=== PATIENT | male | born 1955 | race Caucasian/White ===

== ENCOUNTER 2019-05-11 14:35 | Inpatient (IN) | payer SELFPAY, OTHER ==
[~2019-05-11 14:35] MED LIST: ISOVUE-370 76%-LOCM 1 ML ONE
[2019-05-11] MEDS ORDERED: Ondansetron PF 4 MG/2 ML Vial ONE ×2 (15:02→16:48)
[2019-05-11] MEDS ORDERED: Fentanyl 100 MCG/2 ML VIAL ONE ×2 (15:02→16:47)
[2019-05-11 15:05] LABS: #Basophils 0.1 thou/uL (0.0-0.2); #Eosinphils 0.1 thou/uL (0.0-0.7); #Lymphocytes 1.9 thou/uL (1.20-3.40); #Monocytes 0.5 thou/uL (0.11-0.59); #Neutrophils 3.9 thou/uL (1.40-6.50); %Basophils 0.8 % (0.0-1.0); %Eosinophils 1.3 % (0.0-10.0); %Lymphocytes 29.8 % (21.0-51.0); %Monocytes 7.4 % (0.0-10.0); %Neutrophils 60.7 % (42.0-75.0); Hemoglobin 13.5 g/dL (14.0-18.0); Mean Corpuscular HGB CONC 32.7 g/dL (32.0-36.0); Mean Corpuscular Hemoglobin 29.7 pg (27.0-31.0); Mean Corpuscular Volume 90.8 fL (78.0-98.0); Mean Platelet Volume 7.9 fL (7.4-10.4); Platelet Count 165 thou/uL (130-400); RBC Distribution Width 11.5 % (11.5-14.5); Red Blood Cell (RBC) Count 4.55 mill/uL (4.70-6.10); White Blood Cell (WBC) Count 6.4 thou/uL (4.8-10.8)
[2019-05-11 15:26] LABS: ALT (SGPT) 25 U/L (8-55); AST (SGOT) 23 U/L (5-34); Albumin 4.3 g/dL (3.4-4.8); Alkaline Phosphatase 80 U/L (40-150); Anion Gap 11 mmol/L (10-20); BUN (Urea Nitrogen) 12 mg/dL (8.4-25.7); Bilirubin, Total 0.7 mg/dL (0.2-1.2); CK (CPK) 154 U/L (30-200); Calc. Creatinine Clearance 0 mL/min (70-130); Calcium 9.1 mg/dL (7.8-10.44); Carbon Dioxide 28 mmol/L (23-31); Chloride 104 mmol/L (98-107); Estimated GFR-MDRD 59; Globulin 2.5 g/dL (2.4-3.5); Glucose 105 mg/dL (80-115); Potassium 3.8 mmol/L (3.5-5.1); Protein, Total 6.8 g/dL (5.8-8.1); Sodium 139 mmol/L (136-145)
--- NOTE | 2019-05-11 16:26 | CT ---
CT BRAIN WITHOUT CONTRAST HISTORY: Fall at work, headache and back pain with loss of consciousness FINDINGS: There are tiny acute petechial hemorrhages in the anterior frontal lobes bilaterally with a tiny acut e subdural hematoma in the parafalcine region. The ventricular size is normal. No infarct or midline shift is seen. The bony calvarium is intact. Th e visualized paranasal sinuses and mastoid air cells are well-aerated. IMPRESSION: Acute tiny intracranial hemorrhages. A follow-up exam should be performed. Discussed over the telephone with ER physician Dr. Howard Rosario at 4:18 PM.
[2019-05-11 16:40] LABS: PTT 27.1 SEC (22.9-36.1); Prothrombin Time 12.9 SEC (12.0-14.7)
--- NOTE | 2019-05-11 17:11 | CT ---
CT CERVICAL SPINE WITHOUT CONTRAST: 05/11/19 HISTORY: Fall. Pain. COMPARISON: None. FINDINGS: Normal location of the temporomandibular joints. Occipital condyles are intact. Odontoid process is i ntact. Advanced degenerative disease of the atlantodental interval. Skull base is intact. Large left paracentral and lateral recess C2-C3 posterior disc osteophyte compl ex narrowing the left neural foramen as well as causing mass effect upon the cord, chronic in nature. Intact ACDF hardware C3-C7. Lung apices are clear. Paraspinal soft tissues are unremarkable. IMPRESSION: 1. No acute fracture or malalignment cervical spine. 2. Large left paracentral and lateral recess posterior disc osteophyte complex at C2-3 causing n eural foraminal and spinal canal narrowing. POS: HOME
--- NOTE | 2019-05-11 17:24 | CT ---
CT CHEST WITH CONTRAST CT ABDOMEN WITH CONTRAST CT PELVIS WITH CONTRAST CT LIMITED THORACIC SPINE WITH CONTRAST CT LIMITED LUMBOSACRAL SPINE WITH CONTRAST 05/11/19 HISTORY: Fall. Pain. COMPARISON: None. FINDINGS: The visualized portion of clavicles are intact. No acute displaced rib fracture. No thoracic spine tr ansverse process fracture. The sternum and manubrium are intact. No thoracic spine compression fractu re. No lumbar spine transverse process fracture. Bilateral pars interarticularis defects at L5 with 3 mm anterolisthesis. The obturator rings are intact. Mild atelectasis within the lung bases and within the lingula. No pneumothorax. No effusion. No pneum atocele. No acute aortic injury. No pericardial effusion. The liver, spleen, pancreas, adrenal glands are with out acute injury. Hypodensity interpolar right kidney measures fluid attenuation suggestive of a cyst . No acute renal injury. No mesenteric hematoma. No dilated loops of large or small bowel. The appendix is visualized and is normal. No spinous process fracture. IMPRESSION: No acute traumatic abnormality within the chest, abdomen, or pelvis. POS: HOME
[2019-05-11] MEDS ORDERED: Ondansetron ODT 4 MG TAB PO PRN (18:33)
[2019-05-11] MEDS ORDERED: Dextrose 5% in Water 1,000 ML IV PRN (18:33)
[2019-05-11] MEDS ORDERED: Dextrose 50% Abboject 50 ML SYRINGE SLOW IVP PRN (18:33)
[2019-05-11] MEDS ORDERED: hydrALAZINE 20 MG/ML VIAL SLOW IVP PRN (18:33)
[2019-05-11] MEDS ORDERED: Promethazine HCl 25 MG/ML VIAL IM PRN (18:33)
[2019-05-11] MEDS ORDERED: traMADol HCl 50 MG TAB PO PRN ×2 (18:39)
[2019-05-11] MEDS: Morphine 2 MG/ML SYRINGE SLOW IVP PRN (20:17)
[2019-05-11] MEDS: Famotidine 20 MG TAB PO SCH (20:20)
[2019-05-11] MEDS: Senokot S 8.6-50 MG TAB PO SCH (20:21)
[2019-05-11 22:33] VITALS: BMI 27.6
[2019-05-12] MEDS: Acetaminophen 1,000 MG in Premix Bag 1 BAG IVPB SCH ×2 (00:16→05:31)
--- NOTE | 2019-05-12 02:07 | HP ---
TRAUMA SURGEON: Brien Landry MD CONSULTING PHYSICIAN: Aiyana Saunders MD HISTORY OF PRESENT ILLNESS: The patient is a 64-year-old male, who presented to the emergency department by a private vehicle after he was found down on the roof of a building. 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 He was up on the roof for about 10 minutes before his co-worker went to check on him and found him unconscious. It is unclear whether he had a mechanical or syncopal fall. He was able to climb down the ladder, but does not remember the events leading up to his arrival. He does not remember the events of the fall and leading up to arrival to the emergency department. He complains of posterior head pain, central chest wall tenderness, T-spine back pain. He also complained of photophobia as well. Denied phonophobia. Had some nausea previously, which has resolved after Zofran. No vomiting reported. REVIEW OF SYSTEMS: All additional 10-point review of systems negative except as indicated above. PAST MEDICAL HISTORY: Colon cancer, C-spine surgeries and pain, chronic pain, and prostate cancer. PAST SURGICAL HISTORY: Prostate surgery and C-spine surgery. SOCIAL HISTORY: The patient denies drug, alcohol, or tobacco use. 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 MEDICATIONS: He takes extended release morphine for chronic pain. ALLERGIES: LATEX. PHYSICAL EXAMINATION: VITAL SIGNS: Temperature 98.6, pulse 75, respirations 18, oxygen saturation 98 % on room air, and blood pressure 132/78. PRIMARY SURVEY: Airway intact. Adequate breath sounds bilaterally. 2+ pulses in bilateral radials, femorals, and DPs. GCS is 15. Gross motor and sensation are intact. No lacerations, bruising or external bleeding. SECONDARY SURVEY: HEAD: Normocephalic, atraumatic. No gross palpable skull deformities. Posterior head tenderness with no laceration. EYES: Pupils 3 to 2, equal, round, reactive to light bilaterally. ENT: No hemotympanum. No epistaxis. No septal hematoma. Midface stable to manipulation. No blood in the oropharynx. Dentition is intact. No anterior neck injury/crepitus/tenderness. C-SPINE: No step-offs or deformities, nontender. C-collar not in place. CHEST: Central sternal chest wall tenderness. No crepitus. No abrasions or ecchymosis. Equal chest movement. ABDOMEN: Soft, nontender, and nondistended. PELVIS: Stable to manipulation. RECTAL: Deferred. GENITOURINARY: Deferred. EXTREMITIES: No gross palpable deformities. No abrasions or ecchymosis noted. 2+ pulses in the bilateral radials, femorals, and DPs. BACK/SPINE: No step-offs or deformities to the L-spine. There is some pain in the thoracic spinal area, however, no abrasions or ecchymosis noted. NEUROLOGIC: 5/5 strength in bilateral cell tender, plantar flexion and dorsiflexion. LABORATORY FINDINGS: White count 6.8, hemoglobin 13.5, hematocrit 41.3, platelets 165. INR 1.0. Sodium 134, potassium 3.8, chloride 104, carbon dioxide 28, BUN 12, creatinine 1.24, and glucose 105. DIAGNOSTIC FINDINGS: CT of the brain demonstrates acute tiny petechial hemorrhages in the frontal lobes with a tiny acute subdural hematoma and deeper falcine region. CT of the C-spine demonstrates no acute fractures or malalignment of cervical spine, large left paracentral and lateral recess posterior disk osteophyte complex at C2-C3 causing neuroforaminal and spinal canal narrowing. CT of the chest, abdomen, and pelvis demonstrates no acute intrathoracic abnormalities within the chest, abdomen, or pelvis. ASSESSMENT: 1. Status post fall, found down on unknown etiology. 2. Bilateral frontal petechial hemorrhages. 3. Parafalcine subdural hematoma. 4. History of colon cancer, chronic neck pain, and prostate cancer. PLAN: The patient will be admitted to the [facility] with q.1 hour neuro checks. He is to have the head of the bed elevated at 30 degrees. He will have a clear liquid diet. Dr. Saunders of Neurosurgery to see the patient and make further recommendations. He will also receive a repeat head CT in the morning unless he has a change in his GCS for which we would complete a CT scan at that time. The patient will also receive serum troponin, echo, and replaced on tele to rule out cardiac causes of possible syncope related to the fall. The patient will work with Physical and Occupational Therapy tomorrow. The patient will likely be either discharged home versus acute rehab depending on his clinical course over the next couple of days. The patient was discussed with Dr. Parrent before this dictation. Job ID: [id number]
--- NOTE | 2019-05-12 02:36 | CON ---
DATE OF CONSULTATION: HISTORY OF PRESENT ILLNESS: Mr. العلي is a 64-year-old male who was brought to the emergency department this evening following a head injury. The patient is uncertain of exactly what happened this evening. He and his coworkers think that he was possibly struck in the back of the head with a baseball while on roof of [employer]. It is possible that he slipped and fell, but less likely. Loss of consciousness was approximately a minute. The patient does not have any memory of the fall, has some retrograde amnesia. Neurosurgery was consulted due to CT that showed a small subdural hematoma. I see Mr. العلي in his hospital room. He is complaining of headache, is wearing sunglasses with the room dark due to sensitivity to light and sound. He is moving all 4 extremities well. He is in good spirits. He is alert and oriented x3. Normal range of motion. Normal strength bilaterally in all 4 extremities. No lateralizing motor or sensory deficits. He is neurologically intact. No numbness or tingling. REVIEW OF SYSTEMS: A 10-point review of systems has been completed and is negative other than stated in the above HPI. PAST MEDICAL HISTORY: Prostate cancer due to a surgery and multiple spinal fusions. PAST SURGICAL HISTORY: Bilateral knee replacement, multiple cervical fusions, 5 levels were fused, prostatectomy, left hand surgery, 3 colon/rectal surgeries. SOCIAL HISTORY: The patient drinks socially. MEDICATIONS: The patient states that he takes morphine for chronic neck pain. No other medications. ALLERGIES: LATEX. PHYSICAL EXAMINATION: VITAL SIGNS: Blood pressure 135/82, heart rate 64, respirations 18, temperature 98, O2 saturations 96% on room air. CONSTITUTIONAL: The patient is alert, oriented x3. He is afebrile, normotensive, nontoxic and does appear to be in some pain. HEENT: Head is normocephalic and atraumatic. Pupils are equal, round, and reactive to light. Extraocular movements are intact. Hearing is intact. Moist mucous membranes. Respirations: Normal work of breathing on room air. EXTREMITIES: 5/5 bilateral strength in deltoids, biceps, triceps, [employer] strength , hip flexion, hip extension, knee flexion, knee extension, dorsiflexion, plantar flexion. No sensory changes bilaterally. Normal range of motion. NEUROLOGIC: The patient is alert and oriented x3. GCS of 15. Speech is spontaneous and fluent. Memory, attention, fund of knowledge are normal. Cranial nerves 2 through 12 are tested and intact. There are no motor or sensory deficits noted. No lateralizing deficits. No pronator drift. IMAGING: CT brain shows no acute intracranial hemorrhage, subdural falcine with no mass effect or midline shift. ASSESSMENT AND PLAN: Mr. العلي is a 64-year-old male with head injury of an unknown origin. He has had approximately 1 minute of loss of consciousness. He has a small parafalcine subdural hemorrhage. The patient is not on any blood thinners. He is neurologically intact. Trauma team has admitted him. We will recommend neuro checks, maintaining normal blood pressure, keeping his pain under control and getting repeat CT in the morning. If there are any further questions, please contact [facility]. Most likely he will be discharged tomorrow and will see in the office on an outpatient basis. Job ID: [id number] MTDD
[2019-05-12 04:18] LABS: #Eosinphils 0.1 thou/uL (0.0-0.7); #Lymphocytes 1.7 thou/uL (1.20-3.40); #Monocytes 0.6 thou/uL (0.11-0.59); #Neutrophils 4.3 thou/uL (1.40-6.50); %Basophils 0.4 % (0.0-1.0); %Eosinophils 1.1 % (0.0-10.0); %Lymphocytes 24.8 % (21.0-51.0); %Monocytes 9.6 % (0.0-10.0); %Neutrophils 64.1 % (42.0-75.0); Hemoglobin 12.7 g/dL (14.0-18.0); Mean Corpuscular Hemoglobin 29.3 pg (27.0-31.0); Mean Corpuscular Volume 91.5 fL (78.0-98.0); Mean Platelet Volume 7.9 fL (7.4-10.4); Platelet Count 163 thou/uL (130-400); RBC Distribution Width 11.6 % (11.5-14.5); Red Blood Cell (RBC) Count 4.34 mill/uL (4.70-6.10); White Blood Cell (WBC) Count 6.7 thou/uL (4.8-10.8)
[2019-05-12 05:22] LABS: Anion Gap 10 mmol/L (10-20); BUN (Urea Nitrogen) 12 mg/dL (8.4-25.7); Calc. Creatinine Clearance 106 mL/min (70-130); Calcium 8.7 mg/dL (7.8-10.44); Carbon Dioxide 25 mmol/L (23-31); Chloride 108 mmol/L (98-107); Estimated GFR-MDRD 87; Glucose 90 mg/dL (80-115); Phosphorus 2.9 mg/dL (2.3-4.7); Potassium 3.8 mmol/L (3.5-5.1); Sodium 139 mmol/L (136-145)
[2019-05-12] MEDS: Morphine 2 MG/ML SYRINGE SLOW IVP PRN (05:30)
[2019-05-12] MEDS ORDERED: Potassium Phosphate 15 MMOL in Sodium Chloride 0.9% 250 ML 250 ML IVPB SCH (07:45)
--- NOTE | 2019-05-12 08:00 | CT ---
CT OF HEAD NONCONTRAST: COMPARISON: Previous day. INDICATION: Followup. History of fall, head injury. FINDINGS: There is mild residual subdural hemorrhage along the interhemispheric falx. A slight degree of adjac ent ex vacuo hemorrhage is seen involving sulci of the medial right frontal lobe indicating mild suba rachnoid hemorrhage. Punctate parenchymal hyperdensities indicate minute residual petechial hemorrha ge. No new mass effect or midline shift. Ventricular system is stable. IMPRESSION: 1. Persistent minimal intracranial hemorrhage without new mass effect or midline shift. 2. Bilateral nasal bone deformities are incidentally imaged. These are age indeterminate. Correlat e clinically. POS: TD
[2019-05-12] MEDS: tiZANidine HCl 4 MG TAB PO PRN ×3 (08:36→21:49)
[2019-05-12] MEDS: Famotidine 20 MG TAB PO SCH ×2 (08:36→20:56)
[2019-05-12] MEDS: Morphine ER 30 MG TAB PO SCH ×2 (08:57→20:55)
[2019-05-12] MEDS: Polyethylene Glycol 3350 17 GM Packet PO SCH (08:58)
[2019-05-12] MEDS: Senokot S 8.6-50 MG TAB PO SCH ×2 (08:59→20:55)
--- NOTE | 2019-05-12 12:14 | PRG ---
DATE OF SERVICE: 05/12/2019 This morning on rounds, I personally interviewed and examined the patient and agreed with documentation and reviewed records and imaging on Enio العلي. Lorraine Adler PA-C, saw him yesterday. Briefly, Enio العلي is a 64-year-old gentleman, who was working on the [place] of [employer] [employer], when he lost consciousness. He was on the phone at that time and he was found down. It is hope that he was hit by a foul ball. CT imaging revealed interhemispheric subdural and some subarachnoid blood in one of the sulci of the right frontal lobe. Followup imaging was done this morning and is stable. Mr. العلي has some headache and nausea, but otherwise feels well. There is no neurological deficit. Overnight, the vitals have been stable. His neurological examination is normal this morning. He is wearing sunglasses because of some photophobia. Mr. العلي likely suffered a head injury and had some subdural hematoma. I am considering a CT angiogram before discharge. We will have to prove to his nurses that he is safe for his activities of daily living before he is being discharged home. I will need to see him in 2-3 weeks with a followup scan until all the blood products are gone. Job ID: [id number] MTDD
--- NOTE | 2019-05-12 12:25 | RAD ---
EXAM: XR Shoulder Lt 3 View STANDARD PROVIDED CLINICAL HISTORY: Pain FINDINGS: There is no evidence for fracture or other acute osseous abnormality. Alignment appears anatomic. Acr omioclavicular joint osteoarthrosis. IMPRESSION: No evidence for an acute osseous abnormality. If there is persistent clinical concern, conservative m anagement and follow-up imaging advised.
--- NOTE | 2019-05-12 12:38 | PRG ---
DATE OF SERVICE: 05/12/2019 SUBJECTIVE: Mr. العلي is a 64-year-old man, who presented to emergency department after he was found down on the roof of a building, unknown history of trauma, although the patient was complaining of pain at back of his head. Workup revealed what appeared to be a contrecoup bifrontal cerebral contusion as well as a small intra-falcine subdural hematoma. This morning, the patient is awake and alert with a Kaleigh Coma Scale of 15. He is complaining of some frontal headaches. He admits to photophobia. No nausea or vomiting. He denies any syncope, chest pain, or extremity weakness. His urinary output is adequate. OBJECTIVE: VITAL SIGNS: This morning include blood pressure 119/72, pulse 61, respiratory rate is 17, temperature 97.6 degrees Fahrenheit, oxygen saturation 100% on room air. The patient apparently had an 8-beat PVCs while he was asleep. He was awoken by his nurse, and the patient had no hemodynamic deficits. HEART: Reveals regular rate and rhythm. No murmurs or gallops auscultated. LUNGS: Clear to auscultation bilaterally. Breathing, regular and nonlabored. ABDOMEN: Soft, nontender, and nondistended. EXTREMITIES: Reveal 2+ radial and pedal pulses bilaterally. NEUROLOGIC: Reveals no focal deficits present. LABORATORY FINDINGS: Today includes a CBC with 6700 white blood cells, hemoglobin and hematocrit are stable at 12.7 and 39.7 respectively, platelet count is 163,000. Metabolic profile; sodium 139, potassium 3.8, chloride is 108, bicarb 25, BUN 12, creatinine 0.88, glucose 87, magnesium is 2.0, phosphorus is 2.9. CPK is 109. Note that troponin-I yesterday was normal, less than 0.01. IMPRESSIONS: 1. Apparent ground level fall. The patient does not recall the circumstances of the fall. Therefore, near-syncopal episode was assumed. 2. Acute traumatic brain injury, neurologically stable. 3. New-onset multiple premature ventricular contractions with no significant electrolyte imbalance. PLAN: 1. Continue with physical and occupational therapy. Speech and Language pathologist will be evaluating the patient to exclude any cognitive deficits. 2. We will ask Cardiology to evaluate the patient with regard to this arrhythmia and history of near-syncopal episode. In interim, we will obtain a 2D echocardiogram to evaluate cardiac chamber size, wall motion, and function. The above findings and plan have been discussed with the patient and his at bedside. They both indicated understanding of information given. Job ID: [id number]
[2019-05-12] MEDS: Acetaminophen 500 MG TAB PO SCH ×3 (12:40→23:07)
--- NOTE | 2019-05-12 18:51 | CT ---
CT angiogram head: 05/12/2019 COMPARISON: None available HISTORY: Small volume intracranial hemorrhage noted on prior head CT TECHNIQUE: Axial CT imaging at 5 mm intervals from vertex to skull base without contrast. Then, axial CT imaging at 1.25 mm intervals from skull base through vertex with IV contrast using CT angiogram protocol. Coronal and sagittal 3-D reformatted imaging obtained. FINDINGS: Noncontrast enhanced head CT demonstrates probable minimal intracranial hemorrhage medial t o the right frontal lobe, much less conspicuous than on the head CT performed earlier 05/12/2019. No midline shift or mass effect. No ventricular enlargement. Stable nasal bone fractures. Imaged paranasal sinuses and mastoid air cells appear well-aerated. The distal left vertebral artery is hypoplastic and the distal left vertebral artery appears to be oc cluded at the axial level of the skull base. The distal right vertebral artery is unremarkable and the distal right vertebral artery is dominant. There is some contrast media within the distalmost asp ect of the left vertebral artery which could represent retrograde filling from the right vertebral artery. Alternatively, this could represent distal reconstitution from small left-sided branches dist al to the distal left vertebral artery occlusion. The basilar artery is patent. The bilateral posterior cerebral arteries are patent. There is a focal area of mild stenosis at the origin of the right posterior cerebral artery. No saccular aneurysm is seen involving the posterior circulation. The imaged extracranial ICA is patent bilaterally. The ICA bifurcation, the A1 segment, the M1 segment, and the MCA bifurcation appears unremarkable hallie aterally. Distal MCA and DERRICK branches appear unremarkable bilaterally as does the region of the anterior communicating artery. There is no saccular aneurysm, high-grade stenosis, or vascular occlus ion seen involving the anterior circulation. IMPRESSION: No saccular aneurysm noted. Please see above discussion.
--- NOTE | 2019-05-12 22:49 | CON ---
DATE OF CONSULTATION: HISTORY: Enio العلي is a 64-year-old white male who was admitted last night after an apparent head injury. 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 A game was going on at that time and he stated that a lot of baseballs were being hit around him. He apparently had some type of loss of consciousness and his coworkers found him down on the ground. He states that he does not remember anything from the time that he was on the roof until he recalls being in the emergency room here. It is very unclear exactly what transpired. Head CT revealed acute tiny intracranial hemorrhages. A CT [place] angio revealed no aneurysm and no significant artery stenosis. Mr. العلي denies ever having any chest discomfort. He denies any shortness of breath except approximately one week ago he was scuba diving and had problems breathing and became very panicked with that. He denies ever having any palpitations or previous syncopal episodes. Today at 10:46 a.m. while he was sleeping, he had approximately a 5-second episode of irregular wide-complex tachycardia, probably ventricular tachycardia. He denies any palpitations, and as stated above, was sleeping at the time. PAST MEDICAL HISTORY: Prostate cancer, colon cancer. PAST SURGICAL HISTORY: Bilateral knee arthroscopies, C-spine surgeries and surgery for prostate cancer with prostatectomy. He has had 3 colorectal surgeries. MEDICATIONS: Morphine for chronic neck pain. ALLERGIES: LATEX. SOCIAL HISTORY: He does not smoke. He occasionally drinks. FAMILY HISTORY: Negative for coronary artery disease. REVIEW OF SYSTEMS: A 12-point review of systems is otherwise unremarkable. PHYSICAL EXAMINATION: VITAL SIGNS: Blood pressure 153/91, pulse of 59. HEENT: PERRL. NECK: Supple. CHEST: Clear. CARDIAC: S1 and S2 normal without any S3, S4, or murmurs. Carotid upstrokes normal without bruits. ABDOMEN: Normal bowel sounds without tenderness. EXTREMITIES: Reveal no clubbing, cyanosis, or edema. NEUROLOGICAL: Grossly intact. LABORATORY DATA: EKG revealed normal sinus rhythm and is unremarkable. Cardiac enzymes are normal. Hemoglobin 12.7, hematocrit 39.7, white count 6.7, platelets 163,000. INR 1.0. Sodium 139, potassium 3.8, chloride 108, carbon dioxide 25, BUN 12, creatinine 0.88. Echocardiogram revealed ejection fraction of 50% to 55% with mild left atrial enlargement, mild mitral regurgitation, and mild tricuspid regurgitation. IMPRESSION: 1. Syncope with head trauma of uncertain etiology. It is uncertain if he slipped and fell, was hit by a baseball or had a syncopal episode due to a cardiac arrhythmia. 2. Wide-complex tachycardia. 3. Minimal intracranial hemorrhages. 4. History of prostate cancer. 5. History of colon cancer. 6. Chronic neck pain. PLAN: With the wide-complex tachycardia, cardiomyopathy and ischemic heart disease need to be ruled out. On echocardiogram, he has normal left ventricular function and does not appear to have a cardiomyopathy. With his small intracranial hemorrhages, he is not a candidate at this time for any type of cardiac intervention even if he is found to have ischemic heart disease. I will have him undergo adenosine Cardiolite testing tomorrow. He also should undergo evaluation by start up specialist and consideration of electrophysiology study with the circumstances surrounding this event. If that is negative, would consider implanting an implantable loop recorder. Job ID: [id number] [facility]
[2019-05-13 04:49] LABS: #Eosinphils 0.1 thou/uL (0.0-0.7); #Lymphocytes 1.9 thou/uL (1.20-3.40); #Monocytes 0.3 thou/uL (0.11-0.59); #Neutrophils 1.7 thou/uL (1.40-6.50); %Basophils 0.2 % (0.0-1.0); %Eosinophils 2.5 % (0.0-10.0); %Lymphocytes 46.4 % (21.0-51.0); %Monocytes 8.3 % (0.0-10.0); %Neutrophils 42.5 % (42.0-75.0); Hemoglobin 13.3 g/dL (14.0-18.0); Mean Corpuscular HGB CONC 32.5 g/dL (32.0-36.0); Mean Corpuscular Hemoglobin 30.2 pg (27.0-31.0); Mean Corpuscular Volume 92.8 fL (78.0-98.0); Mean Platelet Volume 7.9 fL (7.4-10.4); Platelet Count 166 thou/uL (130-400); RBC Distribution Width 11.8 % (11.5-14.5); Red Blood Cell (RBC) Count 4.39 mill/uL (4.70-6.10)
[2019-05-13 04:59] LABS: Anion Gap 9 mmol/L (10-20); BUN (Urea Nitrogen) 9 mg/dL (8.4-25.7); Calc. Creatinine Clearance 117 mL/min (70-130); Calcium 8.9 mg/dL (7.8-10.44); Carbon Dioxide 28 mmol/L (23-31); Chloride 108 mmol/L (98-107); Estimated GFR-MDRD Greater than 90; Glucose 88 mg/dL (80-115); Magnesium 2.1 mg/dL (1.6-2.6); Phosphorus 3.3 mg/dL (2.3-4.7); Sodium 141 mmol/L (136-145)
[2019-05-13] MEDS: Acetaminophen 500 MG TAB PO SCH ×4 (05:45→23:42)
--- NOTE | 2019-05-13 07:30 | PRG ---
DATE OF SERVICE: 05/13/2019 I have seen Mr. العلي in his hospital room this morning. Due to an interhemispheric blood and question about loss of consciousness at work, we ordered a CT angiogram. Mr. العلي ensured did not have an A-comm aneurysm. He does not. 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 There is some refilling of the distal portion of the back flow. The right vertebral artery is extremely large and more than compensates for the loss of the left vertebral artery. Mr. العلي was noted to have a cardiac arrhythmia, and he is scheduled for a testing today. I do not find any new neurological deficit on Mr. العلي's examination. The blood is cleared out on the CT scan. My plan for Mr. العلي is to suggest one aspirin daily starting two weeks from now. This is not so much to treat his occluded left vertebral artery, but to prevent stroke from either of the other 3 remaining arteries feeding the brain. The reason for the delay is the hemorrhage he experienced from his head trauma. Thereafter, I think, it is reasonable idea. I will see him in 2 weeks with a followup CT scan of the head in the office. Please call for questions. Job ID: [id number] [facility]
[2019-05-13] MEDS ORDERED: PHOS-NAK 1 PKT PACK PO SCH (07:45)
[2019-05-13] MEDS: Polyethylene Glycol 3350 17 GM Packet PO SCH (08:11)
[2019-05-13] MEDS: Famotidine 20 MG TAB PO SCH ×2 (08:12→20:34)
[2019-05-13] MEDS: Senokot S 8.6-50 MG TAB PO SCH ×2 (08:12→20:33)
[2019-05-13] MEDS: Morphine ER 30 MG TAB PO SCH ×2 (08:12→20:34)
--- NOTE | 2019-05-13 13:22 | PRG ---
DATE OF SERVICE: 05/13/2019 SUBJECTIVE: The patient was seen this morning sitting up in bed with no signs of acute distress. He reported his concussive symptoms of photophobia and headache have greatly improved over the past 24 hours. States that he has this persistent chest wall sternal pain that improves with pain medications. It is reproducible. Reports that the pain has been consistently there since his fall. The pain does not radiate anywhere. He denies any other symptoms that would lead me to believe that it is cardiac in nature. He reports he is tolerating a regular diet, voiding without difficulties. He was to have an adenosine stress test today. However, he drinks something this morning and so the test was pushed back to tomorrow. He will be n.p.o. after midnight. He has been seen by Cardiology because he had an 8-beat run of ventricular tachycardia while he was in the [facility]. The patient reports he has not had any lightheadedness, syncope, or changes in his mentation since that time. CT of the brain completed by Dr. Saunders demonstrated a left vertebral artery occlusion, which does not appear to be related to the trauma and could not have caused this arrhythmia event. OBJECTIVE: VITAL SIGNS: Temperature 98.1, pulse 59, respirations 16, oxygen saturation 96% on room air, and blood pressure 115/73. GENERAL: Well-appearing, middle-aged male, sitting up in bed with no signs of acute events. PULMONARY: Equal chest rise and fall. Clear breath sounds bilaterally. No signs of acute respiratory distress. CARDIAC: Regular rate and rhythm. No murmurs, gallops, or rubs. CHEST WALL: Central chest tenderness that is located central sternal and is reproducible. The pain does not radiate. There are no signs of trauma at that location. No bruising or lacerations are noted. ABDOMEN: Soft, nontender, nondistended. EXTREMITIES: 2+ pulses in all extremities. No significant swelling noted. Left shoulder tenderness to palpation. NEUROLOGIC: GCS is 15. Gross motor and sensation are intact. Pupils are equal, round, and reactive to light. No focal neurological deficits. LABORATORY FINDINGS: White count 4.0, hemoglobin 13.3, . Sodium 141, potassium 4.0, chloride 108, carbon dioxide 28, BUN 6, creatinine 0.80, phos 3.3, magnesium 2.1. 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 Echocardiogram completed yesterday demonstrates ejection fraction is visually estimated at 50% to 55%, the left atrium is mildly dilated, mild mitral regurgitation is present, mild tricuspid regurgitation. ASSESSMENT: 1. Status post fall, found down. 2. Bilateral frontal petechial hemorrhages. 3. Subdural hematoma. 4. Episode of ventricular tachycardia. 5. History of colon cancer, prostate cancer, and chronic neck pain. PLAN: The patient will be made n.p.o. at midnight tonight, so he can receive his adenosine stress test recommended by Cardiology. Cardiology also recommends EP consult, which I believe is not available until Wednesday morning. The patient is aware of this. Neurosurgery recommended starting the patient on aspirin 2 weeks after the initial trauma to address the left vertebral artery occlusion that was found on the CTA of the brain completed yesterday. Of note, this left vertebral artery occlusion is not related to the patient's trauma. The patient reported some persistent central sternal chest wall pain. At the time of presentation in the emergency department, the patient did report this same pain to me. There were no signs of trauma and it was reproducible with palpation. It does not appear to be cardiogenic in nature. 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 He did say that they were playing a game and that multiple balls were hitting the building and falling onto the roof while he was working. We will continue his cardiac workup, but the ventricular tachycardia could be related to a cardiac contusion. CT images were reviewed by myself and Radiology the second time to rule out sternal fracture and we again did not see any injury at that location. The patient will continue to work with Physical and Occupational Therapy. Speech and Language pathologist saw the patient yesterday and recommended outpatient speech. We will arrange that with Case Management. The patient will also receive phosphorus electrolyte replacement today. The patient will be discussed with Dr. Caballero after this dictation. Job ID: [id number]
--- NOTE | 2019-05-13 16:23 | EKG ---
Test Reason : Blood Pressure : / mmHG Vent. Rate : 070 BPM Atrial Rate : 070 BPM P-R Int : 134 ms QRS Dur : 082 ms QT Int : 406 ms P-R-T Axes : 103 025 041 degrees QTc Int : 438 ms Normal sinus rhythm Normal ECG Confirmed by ZULMA CLIFTON, MATEO ([id number]), publication editor SOHAIL MARTIN ([id number]) on 05/13/2019 4:22:41 PM Referred By: Confirmed By:MATEO MAYA MD
[2019-05-13] MEDS: tiZANidine HCl 4 MG TAB PO PRN (20:34)
[2019-05-14] MEDS: Acetaminophen 500 MG TAB PO SCH ×3 (05:43→18:49)
[2019-05-14] MEDS: Morphine ER 30 MG TAB PO SCH ×2 (08:15→21:09)
[2019-05-14] MEDS: Polyethylene Glycol 3350 17 GM Packet PO SCH (08:17)
[2019-05-14] MEDS: Senokot S 8.6-50 MG TAB PO SCH ×2 (08:17→21:09)
[2019-05-14] MEDS: Famotidine 20 MG TAB PO SCH ×2 (08:18→21:09)
[2019-05-14] MEDS: Cyclobenzaprine 10 MG TAB PO PRN ×2 (12:04→21:13)
[2019-05-14] MEDS ORDERED: ADENOSINE 60 MG/20 ML VIAL ONE (12:38)
--- NOTE | 2019-05-14 12:41 | NM ---
NUCLEAR MEDICINE CARDIAC PERFUSION EXAMINATION: HISTORY: A 64-year-old male with abnormal heart rhythm. TECHNIQUE: A single day nuclear medicine cardiac perfusion examination was performed. Rest images were obtained using 10 millicuries of technetium 99m sestamibi. Stress images were obtained using 30 millicuries of technetium 99m sestamibi and adenosine. FINDINGS: Tomographic images show no fixed or reversible perfusion defects. Gated images show normal wall berenice on and an ejection fraction of 59%. EDV is 108 mL. LHR is 0.3. TID is 1.1. IMPRESSION: No evidence of ischemia. POS: C
--- NOTE | 2019-05-14 14:14 | PRG ---
DATE OF SERVICE: 05/14/2019 SUBJECTIVE: The patient was seen this morning sitting up in bed leaning onto his right side. He reported he did not sleep very well last night because he is having some persistent left scapular area pain. He reports the pain feels like he has a pinched nerve. He denies radiculopathies to his left upper extremity. He reports the pain is resolved when he does not move his left upper extremity. Previously, a splint was provided for that arm, but the patient did not want to wear it because he has a left AC IV, and the splint was bothering him. He did agree to have a new IV placed on the right side and the splint placed on his left upper extremity as well as trying other pain medications. He denies any shortness of breath or chest pain. He does still have that reproducible central sternal chest wall tenderness, but he denies shortness of breath, radiating pain, nausea, or vomiting. Reports his concussive symptoms are much improved. His mood is better. He is not sensitive to light and sound, and he has not been nauseous now for several days. He is ambulating without assistance, but does have pain in his left shoulder when he ambulates because he has not been wearing the sling. OBJECTIVE: VITAL SIGNS: Temperature 98.1, pulse 57, respirations 18, oxygen saturation 94% on room air, blood pressure 149/82. GENERAL: Well-appearing middle-aged male, sitting up in bed with no signs of acute distress. PULMONARY: Equal chest rise and fall. Clear breath sounds bilaterally. No signs of acute respiratory distress. CARDIAC: Regular rate and rhythm. No murmurs, gallops, or rubs. CHEST WALL: Central chest tenderness is located in the central sternum, and pain is reproducible. There is no bruising or any signs of trauma. No lacerations noted. ABDOMEN: Soft, nontender, and nondistended. BACK: No spinal tenderness. No signs of any trauma. No tenderness to the left scapula. EXTREMITIES: 2+ pulses in all extremities. No significant swelling noted. Left shoulder pain with range of motion. NEUROLOGIC: GCS is 15. Gross motor and sensation are intact. Pupils are equal, round, and reactive to light bilaterally. No focal neurological deficit. LABORATORY FINDINGS: There are no new laboratory findings to discuss. DIAGNOSTIC FINDINGS: Nuclear stress test completed today demonstrates no evidence of ischemia. ASSESSMENT: 1. Status post found down. 2. Bilateral frontal petechial hemorrhages. 3. Subdural hematoma. 4. One episode of ventricular tachycardia, about 5 seconds. 5. Left scapular/shoulder/back pain. 6. History of colon cancer, prostate cancer, and chronic neck pain. PLAN: Cardiology has completed a nuclear stress test, which showed no ischemia. He has had no other arrhythmia events on the monitor. He denies palpitations, shortness of breath, or chest pain. Echo was also completed, which was normal. Dr. Hewitt also recommends that we consult EP. They will be consulted tomorrow to get their opinion for further EP studies. He is neurologically intact and will follow up with Dr. Saunders in 2 weeks. At that time, they will also start aspirin for the patient's left vertebral artery occlusion, which is not related to his trauma. Nursing is to remove the IV in the left AC and place in a new IV on the right upper extremity, so that the patient can have his left upper extremity in the sling. We will also start additional pain control with scheduled gabapentin and p.r.n. Flexeril. The patient to continue to work with Occupational Therapy and Speech. The patient is ready for discharge once we get the opinion of EP. He will be discharged with physical therapy and outpatient speech as well. The patient was discussed with Dr. Caballero before this dictation. Job ID: [id number]
[2019-05-14] MEDS: Gabapentin 300 MG CAP PO SCH ×2 (16:42→21:09)
[2019-05-15] MEDS: Acetaminophen 500 MG TAB PO SCH ×4 (01:21→17:47)
[2019-05-15] MEDS ORDERED: Sodium Chloride 0.9% 1,000 ML IV SCH (06:00)
[2019-05-15] MEDS: Senokot S 8.6-50 MG TAB PO SCH ×2 (08:14→20:13)
[2019-05-15] MEDS: Polyethylene Glycol 3350 17 GM Packet PO SCH (08:14)
[2019-05-15] MEDS: Famotidine 20 MG TAB PO SCH ×2 (08:14→20:11)
[2019-05-15] MEDS: Gabapentin 300 MG CAP PO SCH ×3 (08:15→20:10)
[2019-05-15] MEDS: Morphine ER 30 MG TAB PO SCH ×2 (08:15→20:10)
--- NOTE | 2019-05-15 13:55 | PRG ---
DATE OF SERVICE: 05/15/2019 SUBJECTIVE: The patient was seen this morning, sitting up in bed with no signs of acute distress. He reported he slept well overnight and pain is much better controlled after starting gabapentin yesterday. He is tolerating a regular diet. He was seen by EP this morning, who would like to do an EP study. He will have the EP study completed tomorrow. He will be n.p.o. after midnight. OBJECTIVE: VITAL SIGNS: Temperature 97.4, pulse 57, respirations 16, oxygen saturation 95% on room air, and blood pressure 131/86. GENERAL: Well-appearing, middle-aged male, sitting up in bed with no signs of acute distress. PULMONARY: Equal chest rise and fall. Clear breath sounds bilaterally. No signs of acute respiratory distress. CARDIAC: Regular rate and rhythm with no murmurs, gallops, or rubs. GASTROINTESTINAL: Abdomen is soft, nontender, and nondistended. EXTREMITIES: 2+ pulses in all extremities. No significant swelling noted. Gross motor and sensation intact. NEUROLOGIC: GCS is 15. Pupils are equal, round, and reactive to light bilaterally. No focal neurological deficit deficits. LABORATORY FINDINGS: There are no new laboratory findings to discuss. DIAGNOSTIC FINDINGS: There are no new diagnostic findings to discuss. ASSESSMENT: 1. Status post found down. 2. Bilateral frontal petechial hemorrhages. 3. Subdural hematomas. 4. One episode of ventricular tachycardia, about 5 seconds. 5. Left shoulder/back/scapular pain, resolved. 6. History of colon cancer, prostate cancer, and chronic neck pain. PLAN: The patient was seen by EP this morning and they are planning to do an EP study tomorrow. He will be n.p.o. after midnight. Continue current pain regimen and diet. Continue to work with Physical and Occupational Therapy as well as Speech. Depending on the results of his EP study, he may be able to go home tomorrow. The patient reports that if they are able to elicit a ventricular response so that they would plan to place an ICD at that time. We will follow up with their recommendations after the procedure. The patient was see seen and examined by Dr. Caballero this morning during rounds. Job ID: [id number] [facility]
--- NOTE | 2019-05-15 18:10 | CON ---
DATE OF CONSULTATION: 05/15/2019 HISTORY OF PRESENT ILLNESS: I am seeing Mr. العلي at our 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 His problems are; 1. Episode of syncope of unclear etiology. 2. 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 3. No structural heart disease with;. 4. 2D echo on 05/12/2019, shows LVEF 50% to 55%, mild MR and TR, and mild left atrial enlargement. 5. Nuclear stress test from 05/13/2019 shows no evidence of ischemia, LVEF 59%. 6. Bilateral frontal petechial hemorrhage and part of felt falcine subdural hematoma by CT likely related to the fall and head trauma. ALLERGIES: LATEX. MEDICATIONS: At home included none except for MS Contin 30 mg p.o. b.i.d. SUBJECTIVE: Mr. العلي is here after an episode of syncopal spell fall and shoulder and head trauma. 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 He then has lapses of memory about what exactly happened. He cannot recall the exact circumstances, but while checking out of on the conditioning units, he fell backwards and likely hit his back shoulders and head as well. He woke up in the ambulance. He also had significant discomfort in the front of the chest as well unexplained. Although, he cannot remember, he is suspicious maybe a baseball could have hit him and causing him to be passed out some time. Since admitted, he has remained stable. Rhythm strips though reveal a short nonsustained ventricular tachycardia. He underwent cardiac evaluation by Dr. Hewitt as above. So far, no abnormal findings were noted. Currently, he has no PND, orthopnea, or lower extremity edema. No fever, chills, or cough. No dizziness or loss of consciousness since admit. No neurological deficits and rest of 12-point review of systems is otherwise unremarkable. PAST MEDICAL HISTORY: No prior history of heart disease or heart attack. He did have a history of prostate surgery and C-spine surgery. He does have a history of colon cancer, chronic pain, and history of prostate cancer. SOCIAL HISTORY: The patient denies smoking, EtOH, or drug use. 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 FAMILY HISTORY: Not contributory. No history of sudden cardiac or early heart attacks are noted. OBJECTIVE DATA: VITAL SIGNS: Blood pressure is 141/89, heart rate 65, respirations 18, and temperature 98.8 degrees Fahrenheit. GENERAL: Alert and oriented man, in no apparent distress. NECK: Supple. Jugular veins not distended. CHEST: Coarse with crackles. HEART: Sounds are regular to rate and rhythm. No murmur or gallop. ABDOMEN: Benign bowel sounds positive. EXTREMITIES: Lower extremity without edema, clubbing, or cyanosis. Pulses are adequate. NEUROLOGIC: The patient is nonfocal. MUSCULOSKELETAL: Denies joint swelling or deformities. SKIN: Without rash. DATABASE: EKG is reviewed reveals sinus rhythm, no significant changes, narrow QRS, QT normal. Telemetry strips reveal a short about 6 weeks nonsustained wide-complex tachycardia. LABORATORY DATA: White cell count is 4, hemoglobin is 13.3, and platelet count is 166. INR 1.0. Sodium is 141, potassium is 4, BUN is 9, and creatinine is 0.8. AST and ALT of 23 and 25. Troponins are less than 0.01. ASSESSMENT AND PLAN: Mr. العلي is a pleasant 64-year-old man with prior history of prostate cancer and colon cancer, who suddenly developed the syncopal spell and head trauma causing subdural hematoma and anmol-event amnesia. The exact reason for fall is unclear, what he has suffered arrhythmia is definitively a possibility especially in view of his nonsustained ventricular tachycardia. We have discussed the potential evaluation options hence the drastic event. It is reasonable to look for inducible ventricular tachyarrhythmia, although alternate explanations are possible to EP study could be helpful in this circumstances. On the other hand, should he be inducible for ventricular tachycardia, ICD might be a consideration. Alternatively, an implantable loop recorder can be done and we discussed his options. Currently, he is undecided. Tentatively, we will set him up for tomorrow for a procedure. Discussed this with Dr. Hewitt and the patient will follow with you. Thank you for allowing me to participate in the care of this patient. Job ID: [id number]
[2019-05-15] MEDS: Cyclobenzaprine 10 MG TAB PO PRN (20:11)
[2019-05-16] MEDS: Acetaminophen 500 MG TAB PO SCH ×4 (01:02→17:42)
[2019-05-16 05:15] LABS: #Eosinphils 0.2 thou/uL (0.0-0.7); #Lymphocytes 1.9 thou/uL (1.20-3.40); #Monocytes 0.4 thou/uL (0.11-0.59); #Neutrophils 2.2 thou/uL (1.40-6.50); %Basophils 0.6 % (0.0-1.0); %Eosinophils 3.5 % (0.0-10.0); %Lymphocytes 40.4 % (21.0-51.0); %Monocytes 9.2 % (0.0-10.0); %Neutrophils 46.2 % (42.0-75.0); Hemoglobin 13.2 g/dL (14.0-18.0); Mean Corpuscular HGB CONC 32.6 g/dL (32.0-36.0); Mean Corpuscular Hemoglobin 29.9 pg (27.0-31.0); Mean Corpuscular Volume 91.8 fL (78.0-98.0); Mean Platelet Volume 8.1 fL (7.4-10.4); Platelet Count 162 thou/uL (130-400); RBC Distribution Width 11.6 % (11.5-14.5); Red Blood Cell (RBC) Count 4.39 mill/uL (4.70-6.10); White Blood Cell (WBC) Count 4.8 thou/uL (4.8-10.8)
[2019-05-16 05:37] LABS: Anion Gap 12 mmol/L (10-20); BUN (Urea Nitrogen) 10 mg/dL (8.4-25.7); Calc. Creatinine Clearance 120 mL/min (70-130); Calcium 9.1 mg/dL (7.8-10.44); Carbon Dioxide 26 mmol/L (23-31); Chloride 105 mmol/L (98-107); Estimated GFR-MDRD Greater than 90; Glucose 102 mg/dL (80-115); Magnesium 2.1 mg/dL (1.6-2.6); Phosphorus 3.8 mg/dL (2.3-4.7); Potassium 3.7 mmol/L (3.5-5.1); Sodium 139 mmol/L (136-145)
[2019-05-16] MEDS: Famotidine 20 MG TAB PO SCH (08:54)
[2019-05-16] MEDS: Morphine ER 30 MG TAB PO SCH (08:54)
[2019-05-16] MEDS: Gabapentin 300 MG CAP PO SCH ×2 (08:55→15:23)
[2019-05-16] MEDS: Polyethylene Glycol 3350 17 GM Packet PO SCH (08:58)
[2019-05-16] MEDS: Senokot S 8.6-50 MG TAB PO SCH (08:58)
[2019-05-16] MEDS ORDERED: Lidocaine 1% (PF) 30 ML VIAL ONE (12:31)
[2019-05-16] MEDS ORDERED: Propofol 1,000 MG/100 ML VIAL IV ONE (12:52)
[2019-05-16] MEDS ORDERED: Fentanyl 100 MCG/2 ML VIAL ONE (13:28)
[2019-05-16] MEDS ORDERED: Midazolam HCl 2 mg/2 ml Vial ONE (13:38)
[2019-05-16] MEDS ORDERED: Morphine Sulfate 2 MG/ML SYRINGE SLOW IVP PRN (14:30)
[2019-05-16] MEDS ORDERED: Promethazine HCl 25 MG/ML VIAL SLOW IVP PRN (14:30)
[2019-05-16] MEDS ORDERED: Promethazine HCl 25 MG/ML VIAL IM PRN (14:30)
[2019-05-16] MEDS ORDERED: PACU-Morphine 4MG/ML VIAL SLOW IVP PRN (14:30)
[2019-05-16] MEDS ORDERED: HYDROmorphone 2 MG/ML VIAL SLOW IVP PRN (14:30)
[2019-05-16] MEDS ORDERED: Ondansetron HCl/PF 4 MG/2 ML Vial IVP PRN (14:30)
[2019-05-16] MEDS: Cyclobenzaprine 10 MG TAB PO PRN (15:23)
[2019-05-16 16:07] VITALS: BP 134/82; TEMP 97.5
--- NOTE | 2019-05-17 06:26 | DIS ---
DATE OF ADMISSION: 05/11/2019 DATE OF DISCHARGE: 05/16/2019 ADMISSION DIAGNOSES: 1. Status post fall down. 2. Bilateral frontal petechial hemorrhages. 3. Subdural hematoma. 4. Possible nonsustained ventricular tachycardia, EP negative. 5. Left shoulder scapular pain, resolved. 6. History of colon cancer, prostate cancer, and chronic neck pain. DISCHARGE DIAGNOSES: 1. Status post fall down. 2. Bilateral frontal petechial hemorrhages. 3. Subdural hematoma, stable. 4. Possible ventricular tachycardia, nonsustained, EP negative. 5. Left shoulder pain, resolved. 6. History of colon cancer, prostate cancer, and chronic neck pain. PROCEDURE: Electrophysiology. HOSPITAL COURSE: The patient is a 64-year-old male, who comes in for evaluation of the event of found down with an amnesia of the event. The patient did not recall he was hit by a ball while watching the baseball game while he just fell down due to medical condition. While in the ER, the patient was hemodynamically stable. GCS 15. He was diagnosed with bilateral frontal petechial hemorrhage and subdural hematoma. Neurosurgeon, Dr. Saunders saw the patient. CT scan stable. The patient was having cardiology workup on possible VT, nonsustained. EP result today is negative. Dr. Saunders is okay for him to discharge home today. DISPOSITION: Home. DISCHARGE CONDITION: Satisfactory. PHYSICAL EXAMINATION: GENERAL: The patient is alert and oriented x3. No acute distress. VITAL SIGNS: Temperature 97, pulse is 53, O2 saturation 98% on room air, blood pressure 134/82. LUNGS: Clear bilaterally. CARDIOVASCULAR: Regular rate and rhythm. ABDOMEN: Soft, nondistended. Bowel sounds normal. EXTREMITIES: Neurovascularly intact x4. DISCHARGE INSTRUCTIONS: The patient is to follow up with Dr. Saunders, Neurosurgeon in [address] scan. The patient is to follow up with Dr. Hewitt in 2 weeks for his cardiology issue. The patient is to take pain medication as directed. DISCHARGE MEDICATIONS: 1. Tylenol OTC. 2. Tramadol. 3. Gabapentin. Job ID: [id number] [facility]
--- NOTE | 2019-05-17 12:28 | OP ---
DATE OF PROCEDURE: 05/16/2019 PROCEDURES PERFORMED: Electrophysiology study and implantable loop recorder. PREOPERATIVE DIAGNOSES: Syncope and nonsustained ventricular tachycardia. DESCRIPTION OF PROCEDURE: The patient came to the EP lab in the postabsorptive state. Informed consent was obtained. A time-out was called. The patient was sedated by member of the anesthesia staff. Once the patient was adequately sedated, the right and left femoral regions were prepped and draped in the usual sterile fashion. Using a modified Seldinger technique, access was obtained x1 in the right femoral vein. A 6-[place] sheath was advanced and through that a quadripolar catheter was placed. Initially, this was placed along the His bundle and an HV interval of 48 milliseconds was recorded. Following this, it was advanced into the right ventricle and single dual and triple extrastimuli were delivered at cycle lengths of 600, 500, and 400 milliseconds. Ventricular ERP at 600 milliseconds was 250, at 500 milliseconds was 240, and at 400 milliseconds was 220. No inducible ventricular tachycardia was found. Based on this, the catheter was removed, the sheaths were removed, and hemostasis was obtained by placement of Vascade device. Following this, the left chest area was prepped and draped in the usual sterile fashion, and using a [employer] implantable loop recorder implantation tool kit, a Reveal LINQ, LNQ11 model number, serial number [id number], was placed without difficulty around the 4th or 5th intercostal space. Subcutaneously, the small incision was closed with 4-0 Vicryl and Dermabond. The patient tolerated the procedure well and was awoken from anesthetic without any difficulty. CONCLUSIONS: 1. No inducible ventricular tachycardia. 2. Normal HV interval. 3. Successful implantation of loop recorder. RECOMMENDATIONS: The patient will follow up with Electrophysiology in 6 weeks. Job ID: [id number]
== END 2019-05-16 18:44 | disposition home or self-care (01) | DRG 86 ==
LOC: ERS 14:35 → ERHOLD 17:35 → OBSVTOIN 17:35 → IMCU/EMU 19:56 → 2SE 05-12 13:52
PROVIDERS: ADMIT Neurological Surgery; ATTEND Surgery
DX: S06.5X1A Traumatic subdural hemorrhage with loss of consciousness of 30 minutes or less, initial encounter (principal); I42.9 Cardiomyopathy, unspecified; C78.5 Secondary malignant neoplasm of large intestine and rectum; I47.2 Ventricular tachycardia; I10 Essential (primary) hypertension; R41.3 Other amnesia; C61 Malignant neoplasm of prostate; I65.02 Occlusion and stenosis of left vertebral artery; I49.3 Ventricular premature depolarization; G89.29 Other chronic pain; W13.2XXA Fall from, out of or through roof, initial encounter; Z96.653 Presence of artificial knee joint, bilateral; Y93.9 Activity, unspecified; Z91.040 Latex allergy status; Z98.1 Arthrodesis status; Z90.49 Acquired absence of other specified parts of digestive tract; Z90.79 Acquired absence of other genital organ(s)
CPT/HCPCS: 33285; 36415; 70450; 70496; 71260; 72125; 74177; 76942; 78452; 80048; 80053; 82550; 83735; 84100; 84484; 85025; 85610; 85730; 93005; 93017; 93306; 93620; 96361; 96374; 96375; 96376; A9500; C1764; C1769; J0131; J0153; J1644; J2001; J2250; J2270; J2405; J2550; J2704; J3010; J7050; Q0162; Q9966